=== PATIENT | male | born 1980 | race Two or more races ===

== ENCOUNTER 2016-12-14 16:44 | Emergency (ER) | payer OTHER ==
[~2016-12-14] VITALS: Ht 172.7 cm; Wt 68.0 kg
[2016-12-14 17:13] VITALS: BP 132/85
[2016-12-14] MEDS ORDERED: IBUPROFEN 800 MG TAB PO ONE (18:00)
== END 2016-12-14 18:18 | disposition home or self-care (01) ==
LOC: ER 17:03
DX: S62.642A Nondisplaced fracture of proximal phalanx of right middle finger, initial encounter for closed fracture (principal); W01.0XXA Fall on same level from slipping, tripping and stumbling without subsequent striking against object, initial encounter; Y93.89 Activity, other specified; Y99.8 Other external cause status; Y92.89 Other specified places as the place of occurrence of the external cause
CPT/HCPCS: 29125; 73130